=== PATIENT | male | born 1960 | race Caucasian/White ===

== ENCOUNTER → 2019-04-12 | Outpatient (CLI) | payer OTHER ==
--- NOTE | 2019-04-12 12:54 | 2DMMODE ---
[place] [address] 2 D/M-MODE ECHOCARDIOGRAM Name: REBECCA LOVE Room: [facility]#: [id number] Admission: 04/12/19 Attend Phys: Devante Morrison, Discharge: Date of : 62 Date of Service: 04/12/19 1254 Report #: [id number] THIS REPORT FOR: //name// APPROVED REPORT Study performed: 04/12/2019 08:35:59 EXAM: Comprehensive 2D, Doppler, and color-flow Echocardiogram Patient Location: Out-Patient BSA: 2.19 HR: 60 bpm BP: 138/80 mmHg Other Information Study Quality: Good Indications Dyspnea Chest Pain Hypertension/HDD 2D Dimensions IVSd: 11.16 (7-11mm) LVOT Diam: 20.13 (18-24mm) LVDd: 42.49 mm PWd: 9.38 (7-11mm) Ascending Ao: 31.07 (22-36mm) LVDs: 25.79 (25-40mm) Aortic Root: 25.22 mm Volumes Left Atrial Volume (Systole) LA ESV Index: 25.70 mL/m2 Aortic Valve AoV Peak Jono.: 1.27 m/s AO Peak Gr.: 6.46 mmHg LVOT Max P.29 mmHg AO Mean Gr.: 3.17 mmHg LVOT Mean P.66 mmHg LVOT Max V: 1.25 m/s AO V2 VTI: 24.95 cm LVOT Mean V: 0.74 m/s JAVIER (VTI): 3.58 cm2 LVOT V1 VTI: 28.09 cm Mitral Valve E/A Ratio: 1.02 MV Decel. Time: 217.55 ms MV E Max Jono.: 0.65 m/[place] [address] 2 D/M-MODE ECHOCARDIOGRAM Name: REBECCA LOVE Room: [facility]#: [id number] Admission: 04/12/19 Attend Phys: Devante oMrrison, Discharge: Date of : 62 Date of Service: 04/12/19 1254 Report #: [id number] PHT: 63.09 ms MVA (PHT): 3.49 cm2 TDI E/Lateral E': 6.50 E/Medial E': 8.13 Medial E' Jono.: 0.08 m/s Lateral E' Jono.: 0.10 m/s Pulmonary Valve PV Peak Jono.: 1.42 m/s PV Peak Gr.: 8.11 mmHg Tricuspid Valve RAP Estimate: 5.00 mmHg TR Peak Gr.: 19.58 mmHg RVSP: 24.58 mmHg PA Pressure: 24.58 mmHg Left Ventricle The left ventricle is normal size. There is normal LV segmental wall motion. There is normal left ventricular wall thickness. Left ventricular systolic function is normal. The left ventricular ejection fraction is within the normal range. LVEF is 55-60%. Grade I - abnormal relaxation pattern. Right Ventricle The right ventricle is normal size. The right ventricular systolic function is normal. Atria The left atrium size is normal. The right atrium size is normal. Aortic Valve The aortic valve is normal in structure. No aortic regurgitation is present. There is no aortic valvular stenosis. Mitral Valve The mitral valve is normal in structure. Mild mitral regurgitation. No evidence of mitral valve stenosis. Tricuspid Valve The tricuspid valve is normal in structure. Trace tricuspid regurgitation. estimated pa pressure 25 mm Hg Pulmonic Valve Pulmonic valve is not well visualized. There is no pulmonic [place] [address] 2 D/M-MODE ECHOCARDIOGRAM Name: REBECCA LOVE Room: [facility]#: [id number] Admission: 04/12/19 Attend Phys: Devanet Morrison, Discharge: Date of : 62 Date of Service: 04/12/19 1254 Report #: [id number] Great Vessels The aortic root is normal in size. IVC is normal in size and collapses >50% with inspiration. Pericardium There is no pericardial effusion. <Conclusion> Left ventricular systolic function is normal. The left ventricular ejection fraction is within the normal range. <ELECTRONICALLY SIGNED> By: Devante Ambriz MD, FACC 04/12/19 1254 1254 1254 Devante Ambriz MD, FACC /INF
--- NOTE | 2019-04-12 16:50 | CARDNUC ---
[place] [address] CARDIAC NUCLEAR IMAGING REPORT Name: REBECCA LOVE Room: [facility]#: [id number] Admission: 04/12/19 Attend Phys: Devante Morrison, Discharge: Date of : 62 Date of Service: 04/12/19 1650 Report #: [id number] THIS REPORT FOR: //name// APPROVED REPORT Imaging Protocol: Rest Tc-99m/Stress Tc-99m 1 day Study performed: 04/12/2019 09:15:00 Indication: Decreased exercise tolerance, increased overall fatigue. Patient Location: Out-Patient Stress Tech: Edward Foss Stress Nurse: Bethany Medina RN NM Tech:JOSEP Holly Ht: 5 ft 11 in Wt: 210 lbs BSA: 2.15 m2 BMI: 29.28 Medical History Medical History: Decreased exercise tolerance, increased fatigue, Angina, HTN, Hyperlipidemia, SOB. Medications: Simvastatin, Losartan-HCTZ. Allergies: No known drug allergies Cardiac Risk Factors: Age, FHX of CAD, HTN, Hyperlipidemia, SOB. Previous Cardiac Procedures: None Pretest Chest Pain Characteristics: No chest pain Exercise History: Physically active Physical Disabilities: None Meds Held (24 hrs): None Resting Data Rest SPECT myocardial perfusion imaging was performed in supine position 30 minutes following the intravenous injection of 11.0 mCi of Tc-99m Sestamibi. Time of rest injection: 0935 Date: 04/12/2019 The images were gated to evaluate regional wall motion and calculate left ventricular ejection fraction. Administration Route: IV Administration Site: Right Hand Exercise Stress At peak stress, the patient was injected intravenously with 33.4mCi of Tc-99m Sestamibi. Time of stress injection: 1205 Date: 04/12/2019 [place] [address] CARDIAC NUCLEAR IMAGING REPORT Name: REBECCA LOVE Room: [facility]#: [id number] Admission: 04/12/19 Attend Phys: Devante Morrison, Discharge: Date of : 62 Date of Service: 04/12/19 1650 Report #: [id number] Administration Route: IV Administration Site: Right Hand Gated Stress SPECT was performed 30 minutes after stress injection. The images were gated to evaluate regional wall motion and calculate left ventricular ejection fraction. Prone imaging was performed. Stress Test Details Stress Test: Exercise stress testing was performed using a Carlos A protocol. HR Max Heart Rate (APMHR): 162 bpm Resting HR: 63 bpm Target HR (85% APMHR): 137 bpm Max HR Achieved: 164 bpm % of APMHR: 101 Recovery HR: 90 bpm HR response to stress: Normal HR response to stress BP Resting BP: 153/72 mmHg Max BP: 229/87 mmHg Recovery BP: 156/96 mmHg BP response to stress: Abnormal hypertensive response to stress. ECG Resting ECG: Sinus Rhythm Stress ECG: Sinus Tachycardia ST Change: None Arrhythmia: None Recovery ECG: Sinus Rhythm Recovery ST Change: None Recovery Arrhythmia: None Clinical Reason for Termination: Completed protocol Stress Symptoms: Dyspnea Exercise duration: 12 min 04 sec Exercise capacity: 13.57 METs Overall Exercise Capacity for Age: Superior The patient tolerated standard Carlos A protocol exercise without significant cardiac symptoms. The patient exhibited good exercise tolerance. There were no stress-induced arrhythmias. Nurse Comments A 59 year old male presented for Carlos [place] [address] CARDIAC NUCLEAR IMAGING REPORT Name: ISACCNadineREBECCA Aarti Room: [facility]#: [id number] Admission: 04/12/19 Attend Phys: Devante Morrison, Discharge: Date of : 62 Date of Service: 04/12/19 1650 Report #: [id number] r/t decreased exercise tolerance with increased overall fatigue. Treadmill was well tolerated. Recovery was unremarkable with PO caffeine, effective. Patient was escorted by staff to Nuclear Medicine for images. Patient stated he felt good at that time. Stress ECG Conclusion The baseline EKG show sinus rhythm without significant ST or T wave abnormality. EKGs obtained during and post exercise showed sinus rhythm and sinus tachycardia with no significant ST segment changes when compared to baseline. There were no stress-induced arrhythmias. Study Quality Study: Good Artifact: Mild Diaphragmatic artifact Study Data At rest, the left ventricular ejection fraction was 59%.. Post stress, the left ventricular ejection was 65%.. TID = 0.90. Perfusion Perfusion images at rest show photopenia involving the basal mid inferior wall due to diaphragmatic attenuation artifact. Post stress images both in the supine and prone views show uniform uptake of the radioisotope throughout the myocardium without defect. Wall Motion Normal left ventricular wall motion. Nuclear Conclusion ECG Findings: negative for ischemia Clinical Findings: negative for ischemia Nuclear Findings: negative for ischemia Exercise Capacity: normal Left Ventricular Function: normal Risk Study: low Myocardial perfusion images show no defect to suggest infarct or ischemia. Left ventricular systolic function appears normal on gated studies. This is a low risk study. <Conclusion> The baseline EKG show sinus rhythm without significant ST or T wave abnormality. EKGs obtained during and post exercise [place] [address] CARDIAC NUCLEAR IMAGING REPORT Name: REBECCA LOVE Room: [facility]#: [id number] Admission: 04/12/19 Attend Phys: Devante Morrison, Discharge: Date of : 62 Date of Service: 04/12/19 1650 Report #: [id number] rhythm and sinus tachycardia with no significant ST segment changes when compared to baseline. There were no stress-induced arrhythmias. <ELECTRONICALLY SIGNED> By: David Savage MD, FACC 04/12/191649 49 49 David Savage MD, FACC /INF
== END ==
LOC: M.NUC 03-22 06:23 → M.CRD 08:33
DX: I34.0 Nonrheumatic mitral (valve) insufficiency (principal); I10 Essential (primary) hypertension; K21.9 Gastro-esophageal reflux disease without esophagitis; M19.90 Unspecified osteoarthritis, unspecified site; E78.5 Hyperlipidemia, unspecified; N52.9 Male erectile dysfunction, unspecified